=== PATIENT | female | born 1980 | race American Indian/Alaskan Native ===

== ENCOUNTER 2017-11-17 05:19 | Inpatient (IN) | payer BC, OTHER ==
[2017-11-17] MEDS ORDERED: Sodium Chloride 0.9% 2.5 ML Syringe FLUSH PRN (05:29)
[2017-11-17] MEDS ORDERED: Sodium Chloride 0.9% 10 ML Syringe FLUSH PRN (05:29)
[2017-11-17] MEDS ORDERED: Oxytocin/0.9 % Sodium Chloride 30 UNIT/500 ML BAG IV SCH (05:30)
[2017-11-17] MEDS ORDERED: Citric Acid/Sodium Citrate Solution 30 ML Cup PO SCH (05:30)
[2017-11-17] MEDS: Lactated Ringers 1,000 ML IV SCH ×4 (06:05→18:46)
[2017-11-17] MEDS ORDERED: ceFAZolin 2 GM in Premix Bag 1 BAG IV ONE (07:00)
[2017-11-17] MEDS ORDERED: Oxytocin 10 Units/1 ML SDV ONE (07:01)
[2017-11-17] MEDS ORDERED: Ondansetron 4 MG/2 ML SDV ONE (07:01)
[2017-11-17] MEDS ORDERED: ceFAZolin 1 GM Vial ONE (07:01)
[2017-11-17] MEDS ORDERED: Morphine PF 1 MG/ML Amp ONE (07:02)
[2017-11-17] MEDS ORDERED: Sodium Chloride 0.9% 20 ML ONE (07:05)
--- NOTE | 2017-11-17 07:41 | PCM.PREANE ---
Preanesthetic Assessment - Anesthesia/Transfusion/Family Hx Anesthesia History: Prior Anesthesia Without Reaction Family History of Anesthesia Reaction: No Transfusion History: No Prior Transfusion(s) - Review of Systems General: No Symptoms Pulmonary: No Symptoms Cardiovascular: No Symptoms Gastrointestinal: No Symptoms Neurological: No Symptoms Other: Reports: None - Physical Assessment NPO Status Date: 11/16/17 Height: 1.6 m Weight: 95.708 kg ASA Class: 2 Mental Status: Alert & Oriented x3 Airway Class: Mallampati = 2 Dentition: Reports: Normal Dentition ROM/Head Extension: Full Lungs: Clear to Auscultation, Normal Respiratory Effort Cardiovascular: Regular Rate, Regular Rhythm - Lab Values: Laboratory Last Values WBC 11.25 K/uL (4.0-11.0) H 11/16/17 13:09 RBC 4.30 M/uL (4.30-5.90) 11/16/17 13:09 Hgb 12.4 g/dL (12.0-16.0) 11/16/17 13:09 Hct 37.7 % (36.0-46.0) 11/16/17 13:09 MCV 87.7 fL (80.0-98.0) 11/16/17 13:09 MCH 28.8 pg (27.0-32.0) 11/16/17 13:09 MCHC 32.9 g/dL (31.0-37.0) 11/16/17 13:09 RDW Std Deviation 46.6 fl (28.0-62.0) 11/16/17 13:09 RDW Coeff of Alejandra 15 % (11.0-15.0) 11/16/17 13:09 Plt Count 179 K/uL (150-400) 11/16/17 13:09 MPV 10.30 fL (7.40-12.00) 11/16/17 13:09 Nucleated RBC % 0.0 /100WBC 11/16/17 13:09 Nucleated RBCs # 0 K/uL 11/16/17 13:09 Blood Type O POSITIVE 11/16/17 13:09 Antibody Screen NEGATIVE 11/16/17 13:09 - Allergies Allergies/Adverse Reactions: Allergies Allergy/AdvReac Type Severity Reaction Status Date / Time No Known Allergies Allergy Verified 11/17/17 05:34 - Blood Blood Available: Yes - Anesthesia Plan Pre-Op Medication Ordered: Antacids - Acknowledgements Anesthesia Type Planned: General Anesthesia Pt an Appropriate Candidate for the Planned Anesthesia: Yes Alternatives and Risks of Anesthesia Discussed w Pt/Guardian: Yes Pt/Guardian Understands and Agrees with Anesthesia Plan: Yes PreAnesthesia Questionnaire Gastrointestinal History: Reports: Other (See Below) Other Gastrointestinal History: heartburn during Genitourinary History: Reports: None MUCKER COFFERDAM History: Reports: Psychiatric History: Reports: Anxiety Endocrine/Metabolic History: Reports: Obesity/BMI 30+ - Past Surgical History Head Surgeries/Procedures: Reports: None Female Surgical History: Reports: Section Endocrine Surgical History: Reports: Other (See Below) Other Endocrine Surgeries/Procedures: 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 Musculoskeletal Surgical History: Reports: Arthroscopic Knee Other Musculoskeletal Surgeries/Procedures:: ACL repair left knee - SUBSTANCE USE Smoking Status *Q: Never Smoker Second Hand Smoke Exposure: No Recreational Drug Use History: No - HOME MEDS Home Medications: Home Meds Doxylamine/Pyridoxine HCl [Diclegis Dr 10-10 mg Tablet] 2 tab PO BEDTIME [History] Iron 65 mg PO DAILY 11/12/17 [History] Magnesium Oxide [Magnesium] 400 mg PO DAILY 11/12/17 [History] PNV95/Ferrous Fumarate/FA [ Vitamin Tablet] 1 tab PO DAILY 11/12/17 [ History] - CURRENT (IN HOUSE) MEDS Current Meds: Current Medications Citric Acid/Sodium Citrate (Bicitra Solution) 30 ml PO .ONCE KRISTEL Lactated Ringer's (Ringers, Lactated) 1,000 mls @ 500 mls/hr IV .BOLUS KRISTEL Last Admin: 11/17/17 07:08 Dose: 500 mls/hr Oxytocin/Sodium Chloride (Oxytocin 30 Unit/500 Ml-Ns) 30 unit in 500 mls @ 250 mls/hr IV TITRATE KRISTEL Sodium Chloride (Saline Flush) 10 ml FLUSH ASDIRECTED PRN PRN Reason: Keep Vein Open Sodium Chloride (Saline Flush) 2.5 ml FLUSH ASDIRECTED PRN PRN Reason: Keep Vein Open Discontinued Medications Cefazolin Sodium (Ancef) Confirm Administered Dose 2 gm .ROUTE .STK-MED ONE Stop: 11/17/17 07:02 Cefazolin Sodium/Dextrose 2 gm (/ Premix) 50 mls @ 100 mls/hr IV ONETIME ONE Stop: 11/17/17 07:29 Sodium Chloride (Normal Saline) Confirm Administered Dose 20 mls @ as directed .ROUTE .STK-MED ONE Stop: 11/17/17 07:06 Morphine Sulfate (Duramorph Pf) Confirm Administered Dose 1 mg .ROUTE .STK-MED ONE Stop: 11/17/17 07:03 Ondansetron HCl (Zofran) Confirm Administered Dose 4 mg .ROUTE .STK-MED ONE Stop: 11/17/17 07:02 Oxytocin (Pitocin) Confirm Administered Dose 20 unit .ROUTE .STK-MED ONE Stop: 11/17/17 07:02
[2017-11-17] MEDS ORDERED: Ketorolac 30 MG/ML SDV ONE (08:27)
[2017-11-17] MEDS ORDERED: Nalbuphine 10 MG/1 ML Vial IVPUSH PRN (08:29)
[2017-11-17] MEDS ORDERED: Acetaminophen/oxyCODONE 325-5 MG Tab PO PRN (08:29)
[2017-11-17] MEDS ORDERED: fentaNYL 100 MCG/2 ML SDV IVPUSH PRN (08:29)
[2017-11-17] MEDS ORDERED: Octyl 2-Cyanoacrylate 1 Tube ONE (08:43)
[2017-11-17] MEDS ORDERED: diphenhydrAMINE 50 MG/ML SDV IVPUSH PRN (08:59)
[2017-11-17] MEDS ORDERED: Methylergonovine 0.2 MG/1 ML Amp IM PRN (08:59)
[2017-11-17] MEDS ORDERED: Ondansetron 4 MG/2 ML SDV IV PRN (08:59)
[2017-11-17] MEDS ORDERED: Lanolin 100% Cream 7 GM Tube TOP PRN (08:59)
[2017-11-17] MEDS ORDERED: Bisacodyl 10 MG Supp RECTAL PRN (08:59)
--- NOTE | 2017-11-17 09:06 | PCM.OPNOTE ---
- General Post-Op/Procedure Note Date of Surgery/Procedure: 11/17/17 Operative Procedure(s): Repeat Findings: viable female, apgars 9 & 9, weight: 3380, normal placenta 3V cord, normal pelvis, normal ovaries, 2 cm posterior subserosal fibroid on uterus. Pre Op Diagnosis: Repeat Post-Op Diagnosis: same Anesthesia Technique: Spinal Primary Surgeon: Anne-Marie Herzog Translator: Keyanna Paulson Fluid Replacement, Intraop: 2,500 Output, Urine Amount: 200 EBL in mLs: 600 Complications: None Known Condition: Stable
--- NOTE | 2017-11-17 09:48 | PCM.POSTAN ---
POST ANESTHESIA ASSESSMENT - MENTAL STATUS Mental Status: Alert, Oriented - RESPIRATORY Respiratory Status: Respiratory Rate WNL, Airway Patent, O2 Saturation Stable - CARDIOVASCULAR CV Status: Pulse Rate WNL, Blood Pressure Stable - GASTROINTESTINAL GI Status: No Symptoms - POST OP HYDRATION Hydration Status: Adequate & Stable
--- NOTE | 2017-11-17 11:24 | OR ---
SURGEON: Anne-Marie Herzog M.D. DATE OF PROCEDURE: 11/17/2017 PREOPERATIVE DIAGNOSES: 1. 39-week intrauterine . 2. Prior delivery x2. 3. Declines vaginal after section. POSTOPERATIVE DIAGNOSES: 1. 39-week intrauterine . 2. Prior delivery x2. 3. Declines vaginal after section. PROCEDURE: Repeat low-transverse section. HUMAN RESOURCES HR GENERALIST: RUTHIE Lopez ANESTHESIA: Spinal. ESTIMATED BLOOD LOSS: 600 mL. FLUIDS: 2500 mL of crystalloid. URINE OUTPUT: 200 mL. FINDINGS: Live born female, scores 9 and 9 weighing 3380 g. Normal-appearing uterus, tubes, and ovaries except for a 2.5 cm posterior subserosal fibroid. COMPLICATIONS: None known. DISPOSITION: Stable to recovery. BRIEF HISTORY: This is a 37-year-old female. She is G3, P2. She presents at 39 weeks' gestation for repeat delivery with risks discussed including bleeding, infection, injury to bowel, bladder, blood vessels, ureters or other organs, risk of thromboembolic event, and risk of anesthesia. She has also declined a vaginal trial of labor for which she would not be a candidate at our facility due to 2 prior deliveries. Understanding all these risks, she does desire to proceed. DESCRIPTION OF PROCEDURE: With the patient in left tilt position, under adequate spinal analgesia, the abdomen was prepped with chlorhexidine and draped in usual fashion for abdominal surgery. SCDs were in place. Driscoll catheter in place and an appropriate time- out was held. After documentation of adequate analgesia, the prior cicatrix was incised of the transverse curvilinear incision and the incision was carried through the subcutaneous tissue to the fascia, which was scored transversely in the midline. Fascial incision was extended laterally using curved Hartman scissors. The fascia was elevated from the underlying rectus muscle using sharp and blunt dissection. Any areas of bleeding that were noted were cauterized. The rectus muscles were bluntly in the midline. A finger was placed into the peritoneal cavity and there were no adhesions anteriorly. Therefore, the rectus muscles were using Hartman scissors and the incision was extended using blunt dissection. The Bimal O retractor was placed. The visceroperitoneum over the lower uterine segment was incised and a transverse curvilinear incision was made over the lower uterine segment using a scalpel. Finger was used to enter the amniotic cavity, clear fluid was noted. The incision was extended using blunt dissection. With fundal pressure, the head was delivered via the uterine incision. The was bulb suctioned by nose and mouth. The remainder of the infant's body was delivered. The cord was clamped x2 and cut and the infant was handed to the nurse in attendance at delivery. The is a liveborn female, scores 9 and 9, weighing 3380 g. Cord blood was collected for cord ABGs as well as routine cord blood sampling. The placenta was removed by manual extraction. The uterus was cleaned with a dry laparotomy tape. The cervix was opened with a ring forceps. The uterine incision was closed with a running lock suture of 0 Polysorb followed by an imbricating layer of 0 Polysorb. Two additional [id number] sutures were placed in the midline for hemostasis. Once the hemostasis had been established, the tubes and ovaries were inspected. The posterior fibroid was noted. The paracolic gutters and posterior cul-de-sac were cleaned with wet laparotomy tape. The uterine incision was again inspected, it remained completely hemostatic. Therefore, the Bimal O retractor was removed. The rectus muscle and peritoneum were loosely approximated in the midline using a running mattress suture of 0 Polysorb. The posterior aspect of the fascia was inspected and any areas of bleeding that were noted were cauterized. The fascial incision was closed with a running suture of 0 Polysorb. Subcutaneous tissue was irrigated. Any areas of bleeding that were noted were cauterized. The skin was closed with a running subcuticular suture of 3-0 Monocryl followed by Dermabond. Final sponge, needle, and instrument counts were reported as correct. There were no known complications. went to nursery in good condition. Mother remains in recovery in good condition. MOUNA / DENNIS /[id number]
[2017-11-17] MEDS: Ketorolac 30 MG/ML SDV IVPUSH SCH ×3 (13:56→22:22)
[2017-11-17] MEDS: Docusate Sodium 100 MG Cap PO SCH (20:50)
[2017-11-18] MEDS: Ketorolac 30 MG/ML SDV IVPUSH SCH ×2 (03:26→09:00)
--- NOTE | 2017-11-18 07:27 | PCM48HPAN ---
Post Anesthesia Note - EVALUATION WITHIN 48HRS OF ANESTHETIC Vital Signs in Normal Range: Yes Patient Participated in Evaluation: Yes Respiratory Function Stable: Yes Airway Patent: Yes Cardiovascular Function Stable: Yes Hydration Status Stable: Yes Pain Control Satisfactory: Yes Nausea and Vomiting Control Satisfactory: Yes Mental Status Recovered: Yes Resp Rate: 16 Blood Pressure: 118/74 - COMMENTS/OBSERVATIONS Free Text/Narrative:: Pt states good pain control and no nausea. Slight pruritis overnight, but doing better this morning.
--- NOTE | 2017-11-18 07:37 | PCM.PNPP ---
<Keyanna Paulson - Last Filed: 11/18/17 07:32> - General Info Date of Service: 11/18/17 Admission Dx/Problem (Free Text): 39 wk IUP, RLTC, prior x2, declined . Subjective Update: Patient is doing well. Pain is tolerable with medications. Bottle feeding. Driscoll has been removed. Has not urinated or stooled. No Flatus. Ambulating. Using SCDs. Lochia WNL. Has not had food yet. Anticipate discharge tomorrow. Functional Status: Reports: Pain Controlled, Ambulating. Denies: Urinating, Incentive Spirometry - Review of Systems General: Denies: Fever, Chills HEENT: Denies: Headaches Pulmonary: Denies: Shortness of Breath, Pleuritic Chest Pain Cardiovascular: Denies: Chest Pain, Palpitations, Lightheadedness Gastrointestinal: Denies: Flatus - General Info Date of Service: 11/18/17 - Patient Data Vital Signs - Most Recent: Last Vital Signs Temp 36.9 C 11/18/17 07:26 Pulse 74 11/18/17 07:26 Resp 16 11/18/17 07:26 BP 118/74 11/18/17 07:26 Pulse Ox 95 11/18/17 07:26 Weight - Most Recent: 95.708 kg I&O - Last 24 Hours: Intake & Output 11/17/17 11/18/17 11/18/17 22:59 06:59 14:59 Intake Total 1000 Output Total 250 1100 Balance 750 -1100 Lab Results - Last 24 Hours: Laboratory Results - last 24 hr 11/18/17 Range/Units 05:33 Hgb 10.7 L (12.0-16.0) g/dL Hct 32.4 L (36.0-46.0) % Med Orders - Current: Current Medications Bisacodyl (Dulcolax) 10 mg RECTAL .ONCE PRN PRN Reason: Constipation Diphenhydramine HCl (Benadryl) 25 mg IVPUSH Q6H PRN PRN Reason: Itching or Nausea Last Admin: 11/17/17 12:55 Dose: 25 mg Docusate Sodium (Colace) 100 mg PO BID KRISTEL Last Admin: 11/17/17 20:50 Dose: 100 mg Emollient Ointment (Lansinoh Hpa) 0 gm TOP ASDIRECTED PRN PRN Reason: Sore Nipples Fentanyl (Sublimaze) 50 mcg IVPUSH Q5M PRN PRN Reason: Pain (severe 7-10) Stop: 11/18/17 08:30 Lactated Ringer's (Ringers, Lactated) 1,000 mls @ 125 mls/hr IV ASDIRECTED KRISTEL Last Admin: 11/17/17 18:46 Dose: 125 mls/hr Ibuprofen (Motrin) 800 mg PO Q8H PRN PRN Reason: mild pain or fever Ketorolac Tromethamine (Toradol) 30 mg IVPUSH Q6H KRISTEL Stop: 11/18/17 09:01 Last Admin: 11/18/17 03:26 Dose: 30 mg Methylergonovine Maleate (Methergine) 0.2 mg IM .ONCE PRN PRN Reason: Excessive Vaginal Bleeding Nalbuphine HCl (Nubain) 2.5 mg IVPUSH Q3H PRN PRN Reason: Pruritis Stop: 11/18/17 08:30 Last Admin: 11/17/17 10:19 Dose: 2.5 mg Ondansetron HCl (Zofran) 4 mg IV Q4H PRN PRN Reason: Nausea/Vomiting Last Admin: 11/17/17 11:06 Dose: 4 mg Oxycodone/Acetaminophen (Percocet 325-5 Mg) 1 tab PO ONETIME PRN PRN Reason: Pain (moderate 4-6) Oxycodone/Acetaminophen (Percocet 325-5 Mg) 1 tab PO Q4H PRN PRN Reason: Pain (moderate 4-6) Oxycodone/Acetaminophen (Percocet 325-5 Mg) 2 tab PO Q4H PRN PRN Reason: Pain (moderate 4-6) Discontinued Medications Cefazolin Sodium (Ancef) Confirm Administered Dose 2 gm .ROUTE .STK-MED ONE Stop: 11/17/17 07:02 Citric Acid/Sodium Citrate (Bicitra Solution) 30 ml PO .ONCE KRISTEL Last Admin: 11/17/17 07:48 Dose: 30 ml Cefazolin Sodium/Dextrose 2 gm (/ Premix) 50 mls @ 100 mls/hr IV ONETIME ONE Stop: 11/17/17 07:29 Last Admin: 04/16/18 22:21 Dose: Not Given Lactated Ringer's (Ringers, Lactated) 1,000 mls @ 500 mls/hr IV .BOLUS KRISTEL Last Admin: 11/17/17 07:08 Dose: 500 mls/hr Oxytocin/Sodium Chloride (Oxytocin 30 Unit/500 Ml-Ns) 30 unit in 500 mls @ 250 mls/hr IV TITRATE KRISTEL Sodium Chloride (Normal Saline) Confirm Administered Dose 20 mls @ as directed .ROUTE .STK-MED ONE Stop: 11/17/17 07:06 Ketorolac Tromethamine (Toradol) Confirm Administered Dose 30 mg .ROUTE .STK- MED ONE Stop: 11/17/17 08:28 Lidocaine HCl (Xylocaine-Mpf 1%) Confirm Administered Dose 5 ml .ROUTE .STK-MED ONE Stop: 11/17/17 07:55 Morphine Sulfate (Duramorph Pf) Confirm Administered Dose 1 mg .ROUTE .STK-MED ONE Stop: 11/17/17 07:03 Octyl Cyanoacrylate (Dermabond Advance) Confirm Administered Dose 1 applic .ROUTE .STK-MED ONE Stop: 11/17/17 08:44 Ondansetron HCl (Zofran) Confirm Administered Dose 4 mg .ROUTE .STK-MED ONE Stop: 11/17/17 07:02 Oxytocin (Pitocin) Confirm Administered Dose 20 unit .ROUTE .STK-MED ONE Stop: 11/17/17 07:02 Sodium Chloride (Saline Flush) 10 ml FLUSH ASDIRECTED PRN PRN Reason: Keep Vein Open Sodium Chloride (Saline Flush) 2.5 ml FLUSH ASDIRECTED PRN PRN Reason: Keep Vein Open - Interaction Disposition, : Fulda in Room with Family Infant Interaction: Holding Infant Feeding: Bottle Fed Infant Support Person: - Recovery Exam Lochia Amount: Scant Lochia Color: Rubra/Red - Exam General: Alert, Oriented, No Acute Distress Lungs: Clear to Auscultation, Normal Respiratory Effort Cardiovascular: Regular Rate, Regular Rhythm GI/Abdominal Exam: Soft, Non-Tender Extremities: Pedal Edema Skin: Warm, Dry, Intact Wound/Incisions: Healing Well, Dressing Dry and Intact Psy/Mental Status: Alert - Assessment Assessment:: Status post-op day #1 for RLTC. Stable. - Plan Plan:: Routine post-op & post- cares. Anticipate discharge tomorrow. <Anne-Marie Herzog - Last Filed: 11/18/17 08:50> - Patient Data Vital Signs - Most Recent: Last Vital Signs Temp 36.9 C 11/18/17 07:26 Pulse 74 11/18/17 07:26 Resp 16 11/18/17 08:24 BP 118/74 11/18/17 07:26 Pulse Ox 95 11/18/17 08:24 I&O - Last 24 Hours: Intake & Output 11/17/17 11/18/17 11/18/17 22:59 06:59 14:59 Intake Total 1000 Output Total 250 1100 Balance 750 -1100 Lab Results - Last 24 Hours: Laboratory Results - last 24 hr 11/18/17 Range/Units 05:33 Hgb 10.7 L (12.0-16.0) g/dL Hct 32.4 L (36.0-46.0) % Med Orders - Current: Current Medications Bisacodyl (Dulcolax) 10 mg RECTAL .ONCE PRN PRN Reason: Constipation Diphenhydramine HCl (Benadryl) 25 mg IVPUSH Q6H PRN PRN Reason: Itching or Nausea Last Admin: 11/17/17 12:55 Dose: 25 mg Docusate Sodium (Colace) 100 mg PO BID [facility] Last Admin: 11/17/17 20:50 Dose: 100 mg Emollient Ointment (Lansinoh Hpa) 0 gm TOP ASDIRECTED PRN PRN Reason: Sore Nipples Lactated Ringer's (Ringers, Lactated) 1,000 mls @ 125 mls/hr IV ASDIRECTED [facility] Last Admin: 11/17/17 18:46 Dose: 125 mls/hr Ibuprofen (Motrin) 800 mg PO Q8H PRN PRN Reason: mild pain or fever Ketorolac Tromethamine (Toradol) 30 mg IVPUSH Q6H [facility] Stop: 11/18/17 09:01 Last Admin: 11/18/17 03:26 Dose: 30 mg Methylergonovine Maleate (Methergine) 0.2 mg IM .ONCE PRN PRN Reason: Excessive Vaginal Bleeding Ondansetron HCl (Zofran) 4 mg IV Q4H PRN PRN Reason: Nausea/Vomiting Last Admin: 11/17/17 11:06 Dose: 4 mg Oxycodone/Acetaminophen (Percocet 325-5 Mg) 1 tab PO ONETIME PRN PRN Reason: Pain (moderate 4-6) Oxycodone/Acetaminophen (Percocet 325-5 Mg) 1 tab PO Q4H PRN PRN Reason: Pain (moderate 4-6) Oxycodone/Acetaminophen (Percocet 325-5 Mg) 2 tab PO Q4H PRN PRN Reason: Pain (moderate 4-6) Discontinued Medications Cefazolin Sodium (Ancef) Confirm Administered Dose 2 gm .ROUTE .STK-MED ONE Stop: 11/17/17 07:02 Citric Acid/Sodium Citrate (Bicitra Solution) 30 ml PO .ONCE KRISTEL Last Admin: 11/17/17 07:48 Dose: 30 ml Fentanyl (Sublimaze) 50 mcg IVPUSH Q5M PRN PRN Reason: Pain (severe 7-10) Stop: 11/18/17 08:30 Cefazolin Sodium/Dextrose 2 gm (/ Premix) 50 mls @ 100 mls/hr IV ONETIME ONE Stop: 11/17/17 07:29 Last Admin: 11/17/17 22:21 Dose: Not Given Lactated Ringer's (Ringers, Lactated) 1,000 mls @ 500 mls/hr IV .BOLUS KRISTEL Last Admin: 11/17/17 07:08 Dose: 500 mls/hr Oxytocin/Sodium Chloride (Oxytocin 30 Unit/500 Ml-Ns) 30 unit in 500 mls @ 250 mls/hr IV TITRATE KRISTEL Sodium Chloride (Normal Saline) Confirm Administered Dose 20 mls @ as directed .ROUTE .STK-MED ONE Stop: 11/17/17 07:06 Ketorolac Tromethamine (Toradol) Confirm Administered Dose 30 mg .ROUTE .STK- MED ONE Stop: 11/17/17 08:28 Lidocaine HCl (Xylocaine-Mpf 1%) Confirm Administered Dose 5 ml .ROUTE .STK-MED ONE Stop: 11/17/17 07:55 Morphine Sulfate (Duramorph Pf) Confirm Administered Dose 1 mg .ROUTE .STK-MED ONE Stop: 11/17/17 07:03 Nalbuphine HCl (Nubain) 2.5 mg IVPUSH Q3H PRN PRN Reason: Pruritis Stop: 11/18/17 08:30 Last Admin: 11/17/17 10:19 Dose: 2.5 mg Octyl Cyanoacrylate (Dermabond Advance) Confirm Administered Dose 1 applic .ROUTE .STK-MED ONE Stop: 11/17/17 08:44 Ondansetron HCl (Zofran) Confirm Administered Dose 4 mg .ROUTE .STK-MED ONE Stop: 11/17/17 07:02 Oxytocin (Pitocin) Confirm Administered Dose 20 unit .ROUTE .STK-MED ONE Stop: 11/17/17 07:02 Sodium Chloride (Saline Flush) 10 ml FLUSH ASDIRECTED PRN PRN Reason: Keep Vein Open Sodium Chloride (Saline Flush) 2.5 ml FLUSH ASDIRECTED PRN PRN Reason: Keep Vein Open - Problem List & Annotations (1) delivery delivered SNOMED Code(s): 946255401 Code(s): O82 - ENCOUNTER FOR DELIVERY WITHOUT INDICATION Status: Acute Current Visit: Yes - Problem List Review Problem List Initiated/Reviewed/Updated: Yes - My Orders Last 24 Hours: My Active Orders 11/17/17 08:59 Patient Status [ADT] Routine Ambulate [RC] PER UNIT ROUTINE Communication Order [RC] PER UNIT ROUTINE Communication Order [RC] PER UNIT ROUTINE Communication Order [RC] Per Unit Routine Intake and Output [RC] Q12H May Shower [RC] ASDIRECTED Notify Provider Intake and Out [RC] ASDIRECTED Notify Provider Vital Signs [RC] ASDIRECTED RT Incentive Spirometry [RC] Q2HWA Acetaminophen/oxyCODONE [Percocet 325-5 MG] 1 tab PO Q4H PRN Acetaminophen/oxyCODONE [Percocet 325-5 MG] 2 tab PO Q4H PRN Bisacodyl [Dulcolax] 10 mg RECTAL .ONCE PRN Ibuprofen [Motrin] 800 mg PO Q8H PRN Lanolin [Lansinoh HPA] See Dose Instructions TOP ASDIRECTED PRN Methylergonovine [Methergine] 0.2 mg IM .ONCE PRN Ondansetron [Zofran] 4 mg IV Q4H PRN diphenhydrAMINE [Benadryl] 25 mg IVPUSH Q6H PRN Abdominal Binder [OM.PC] Routine Assess Lochia [WOMSER] Per Unit Routine Assess Uterine Involution [WOMSER] Per Unit Routine Breast Pump [WOMSER] Per Unit Routine Peripheral IV Discontinue [OM.PC] Routine Sequential Compression Device [OM.PC] Per Unit Routine Resuscitation Status Routine 11/17/17 09:00 Docusate Sodium [Colace] 100 mg PO BID Ketorolac [Toradol] 30 mg IVPUSH Q6H Lactated Ringers [Ringers, Lactated] 1,000 ml IV ASDIRECTED 11/17/17 Dinner Regular Diet [DIET] - Plan Plan:: Patient was examined and I agree with above. She will need to start on oral pain medications today, continue postop care, ambulate, home in am if stable.
[2017-11-18] MEDS: Docusate Sodium 100 MG Cap PO SCH ×3 (08:56→21:00)
[2017-11-18] MEDS: Acetaminophen/oxyCODONE 325-5 MG Tab PO PRN ×4 (12:20→22:16)
[2017-11-18] MEDS: Ibuprofen 800 MG Tab PO PRN ×2 (15:19→23:53)
[2017-11-19] MEDS: Acetaminophen/oxyCODONE 325-5 MG Tab PO PRN ×2 (03:19→11:51)
--- NOTE | 2017-11-19 08:28 | PCM.PNPP ---
- General Info Date of Service: 11/19/17 Functional Status: Reports: Pain Controlled, Tolerating Diet, Ambulating, Urinating - Review of Systems General: Reports: No Symptoms HEENT: Reports: No Symptoms Pulmonary: Reports: No Symptoms Cardiovascular: Reports: No Symptoms Gastrointestinal: Reports: No Symptoms Genitourinary: Reports: No Symptoms Musculoskeletal: Reports: No Symptoms Skin: Reports: No Symptoms Neurological: Reports: No Symptoms Psychiatric: Reports: No Symptoms - Patient Data Vital Signs - Most Recent: Last Vital Signs Temp 36.1 C 11/18/17 23:53 Pulse 75 11/18/17 23:53 Resp 18 11/18/17 23:53 BP 112/66 11/18/17 23:53 Pulse Ox 98 11/18/17 23:53 Weight - Most Recent: 95.708 kg I&O - Last 24 Hours: Intake & Output 11/18/17 11/19/17 11/19/17 22:59 06:59 14:59 Output Total 900 Balance -900 Med Orders - Current: Current Medications Bisacodyl (Dulcolax) 10 mg RECTAL .ONCE PRN PRN Reason: Constipation Diphenhydramine HCl (Benadryl) 25 mg IVPUSH Q6H PRN PRN Reason: Itching or Nausea Last Admin: 11/17/17 12:55 Dose: 25 mg Docusate Sodium (Colace) 100 mg PO BID [facility] Last Admin: 11/18/17 21:00 Dose: 100 mg Emollient Ointment (Lansinoh Hpa) 0 gm TOP ASDIRECTED PRN PRN Reason: Sore Nipples Lactated Ringer's (Ringers, Lactated) 1,000 mls @ 125 mls/hr IV ASDIRECTED [facility] Last Admin: 11/17/17 18:46 Dose: 125 mls/hr Ibuprofen (Motrin) 800 mg PO Q8H PRN PRN Reason: mild pain or fever Last Admin: 11/18/17 23:53 Dose: 800 mg Methylergonovine Maleate (Methergine) 0.2 mg IM .ONCE PRN PRN Reason: Excessive Vaginal Bleeding Ondansetron HCl (Zofran) 4 mg IV Q4H PRN PRN Reason: Nausea/Vomiting Last Admin: 11/17/17 11:06 Dose: 4 mg Oxycodone/Acetaminophen (Percocet 325-5 Mg) 1 tab PO ONETIME PRN PRN Reason: Pain (moderate 4-6) Oxycodone/Acetaminophen (Percocet 325-5 Mg) 1 tab PO Q4H PRN PRN Reason: Pain (moderate 4-6) Last Admin: 11/18/17 15:19 Dose: 1 tab Oxycodone/Acetaminophen (Percocet 325-5 Mg) 2 tab PO Q4H PRN PRN Reason: Pain (moderate 4-6) Last Admin: 11/19/17 03:19 Dose: 2 tab Discontinued Medications Cefazolin Sodium (Ancef) Confirm Administered Dose 2 gm .ROUTE .STK-MED ONE Stop: 11/17/17 07:02 Citric Acid/Sodium Citrate (Bicitra Solution) 30 ml PO .ONCE [facility] Last Admin: 11/17/17 07:48 Dose: 30 ml Fentanyl (Sublimaze) 50 mcg IVPUSH Q5M PRN PRN Reason: Pain (severe 7-10) Stop: 11/18/17 08:30 Cefazolin Sodium/Dextrose 2 gm (/ Premix) 50 mls @ 100 mls/hr IV ONETIME ONE Stop: 11/17/17 07:29 Last Admin: 11/17/17 22:21 Dose: Not Given Lactated Ringer's (Ringers, Lactated) 1,000 mls @ 500 mls/hr IV .BOLUS KRISTEL Last Admin: 11/17/17 07:08 Dose: 500 mls/hr Oxytocin/Sodium Chloride (Oxytocin 30 Unit/500 Ml-Ns) 30 unit in 500 mls @ 250 mls/hr IV TITRATE [facility]ST[facility] Sodium Chloride (Normal Saline) Confirm Administered Dose 20 mls @ as directed .ROUTE .STK-MED ONE Stop: 11/17/17 07:06 Ketorolac Tromethamine (Toradol) Confirm Administered Dose 30 mg .ROUTE .STK- MED ONE Stop: 11/17/17 08:28 Ketorolac Tromethamine (Toradol) 30 mg IVPUSH Q6H [facility] Stop: 11/18/17 09:01 Last Admin: 11/18/17 09:00 Dose: 30 mg Lidocaine HCl (Xylocaine-Mpf 1%) Confirm Administered Dose 5 ml .ROUTE .STK-MED ONE Stop: 11/17/17 07:55 Morphine Sulfate (Duramorph Pf) Confirm Administered Dose 1 mg .ROUTE .STK-MED ONE Stop: 11/17/17 07:03 Nalbuphine HCl (Nubain) 2.5 mg IVPUSH Q3H PRN PRN Reason: Pruritis Stop: 11/18/17 08:30 Last Admin: 11/17/17 10:19 Dose: 2.5 mg Octyl Cyanoacrylate (Dermabond Advance) Confirm Administered Dose 1 applic .ROUTE .STK-MED ONE Stop: 11/17/17 08:44 Ondansetron HCl (Zofran) Confirm Administered Dose 4 mg .ROUTE .STK-MED ONE Stop: 11/17/17 07:02 Oxytocin (Pitocin) Confirm Administered Dose 20 unit .ROUTE .STK-MED ONE Stop: 11/17/17 07:02 Sodium Chloride (Saline Flush) 10 ml FLUSH ASDIRECTED PRN PRN Reason: Keep Vein Open Sodium Chloride (Saline Flush) 2.5 ml FLUSH ASDIRECTED PRN PRN Reason: Keep Vein Open - Interaction Infant Disposition, : [place] in Room with Family Interaction: Holding Infant Feeding: Bottle Fed Infant Support Person: - Recovery Exam Fundal Tone: Firm Fundal Level: 1 Fingerbreadths Below Umbilicus Fundal Placement: Midline Lochia Amount: Scant Lochia Color: Rubra/Red Perineum Description: Intact, Minimal Bruising/Swelling Bladder Status: Voiding Urinary Elimination: Indwelling Catheter - Exam General: Alert, Oriented Lungs: Clear to Auscultation, Normal Respiratory Effort Cardiovascular: Regular Rate, Regular Rhythm GI/Abdominal Exam: Normal Bowel Sounds, Soft, Non-Tender, No Organomegaly, No Distention Extremities: Normal Inspection, Non-Tender, No Pedal Edema, Normal Capillary Refill Skin: Warm, Dry, Intact Wound/Incisions: Healing Well Neurological: No New Focal Deficit - Problem List & Annotations (1) delivery delivered SNOMED Code(s): 915157011 Code(s): O82 - ENCOUNTER FOR DELIVERY WITHOUT INDICATION Status: Acute Current Visit: Yes - Problem List Review Problem List Initiated/Reviewed/Updated: Yes - My Orders Last 24 Hours: My Active Orders 11/19/17 08:18 Ready for Discharge [RC] PER UNIT ROUTINE - Assessment Assessment:: POD#2 after repeat low transverse , stable, minimal lochia, tolerating diet, would like to go home. - Plan Plan:: Discharge instructions reviewed. Call if temp over 101, uncontrolled pain or bleeding more than a pad per hour for 2 hours. She will complete 1 month of vitamins.
[2017-11-19] MEDS: Docusate Sodium 100 MG Cap PO SCH (08:39)
[2017-11-19] MEDS: Ibuprofen 800 MG Tab PO PRN (08:40)
[2017-11-19 09:41] VITALS: BP 113/76
== END 2017-11-19 13:15 | disposition home or self-care (01) | DRG 540 ==
LOC: MW.OB 05:19
PROVIDERS: ADMIT Obstetrics & Gynecology; ATTEND Obstetrics & Gynecology
PROC: 10D00Z1 Extraction of Products of Conception, Low, Open Approach (ICD-10-PCS; principal; 2017-11-17)
DX: O34.211 Maternal care for low transverse scar from previous cesarean delivery (principal); Z3A.39 39 weeks gestation of pregnancy; Z37.0 Single live birth
CPT/HCPCS: 36415; 59025; 85014; 85018; 85027; 86850; 86900; 86901; A9270-GY; J0690; J1200; J1885; J2274; J2300; J2405; J2590; J7120

== ENCOUNTER 2018-04-29 07:23 | Day surgery (SDC) | payer BC, OTHER ==
[~2018-04-29 07:23] MED LIST: Dexamethasone 4 MG/ML 5 ML MDV ONE; Lactated Ringers 1,000 ML IV SCH; Midazolam 1 MG/ML 2 ML SDV ONE; Ondansetron 4 MG/2 ML SDV ONE; Propofol 200 MG/20 ML SDV ONE; ceFAZolin/Dextrose,Iso-Osmotic 2 GM/50 ML Duplex Bag IV ONE; fentaNYL 250 MCG/5 ML SDV ONE
[2018-04-29] MEDS ORDERED: Lidocaine 1% 20 ML MDV ONE (07:41)
[2018-04-29] MEDS ORDERED: ceFAZolin 2 GM in Premix Bag 1 BAG IV SCH (08:00)
--- NOTE | 2018-04-29 09:11 | PCM.PREANE ---
Preanesthetic Assessment - Procedure Proposed Procedure: Left knee scope with menisectomy - Anesthesia/Transfusion/Family Hx Anesthesia History: Prior Anesthesia Without Reaction Family History of Anesthesia Reaction: No Transfusion History: No Prior Transfusion(s) - Review of Systems General: No Symptoms Pulmonary: No Symptoms Cardiovascular: No Symptoms Gastrointestinal: No Symptoms Neurological: No Symptoms Other: Reports: Diabetes, Thyroid Problems (incision with parathyroid adenoma excision) - Physical Assessment NPO Status Date: 04/28/18 NPO Status Time: 20:00 O2 Sat by Pulse Oximetry: 95 Respiratory Rate: 16 Vital Signs: Last Vital Signs Temp 97.2 F 04/29/18 07:40 Pulse 64 04/29/18 07:40 Resp 16 04/29/18 07:40 BP 114/71 04/29/18 07:40 Pulse Ox 95 04/29/18 07:40 Height: 5 ft 2 in Weight: 190 lb ASA Class: 2 Mental Status: Alert & Oriented x3 Airway Class: Mallampati = 1 Dentition: Reports: Normal Dentition Thyro-Mental Finger Breadths: 4 Mouth Opening Finger Breadths: 3 ROM/Head Extension: Full Lungs: Clear to Auscultation, Normal Respiratory Effort Cardiovascular: Regular Rate, Regular Rhythm, No Murmurs - Lab Values: Laboratory Last Values Urine HCG, Qual NEGATIVE (NEGATIVE) 04/29/18 07:35 - Allergies Allergies/Adverse Reactions: Allergies Allergy/AdvReac Type Severity Reaction Status Date / Time No Known Allergies Allergy Verified 04/27/18 09:53 - Blood Blood Available: No Product(s) Available: None - Anesthesia Plan Pre-Op Medication Ordered: None - Acknowledgements Anesthesia Type Planned: General Anesthesia (LMA) Pt an Appropriate Candidate for the Planned Anesthesia: Yes Alternatives and Risks of Anesthesia Discussed w Pt/Guardian: Yes Pt/Guardian Understands and Agrees with Anesthesia Plan: Yes PreAnesthesia Questionnaire Gastrointestinal History: Reports: None Genitourinary History: Reports: None FINANCIAL SECRETARY History: Reports: Polycystic Ovaries, Psychiatric History: Reports: Anxiety Endocrine/Metabolic History: Reports: Obesity/BMI 30+ - Past Surgical History Head Surgeries/Procedures: Reports: None Female Surgical History: Reports: Section Endocrine Surgical History: Reports: Thyroidectomy, Other (See Below) Other Endocrine Surgeries/Procedures: partial thyroidectomy Musculoskeletal Surgical History: Reports: Arthroscopic Knee Other Musculoskeletal Surgeries/Procedures:: left knee scope x2 - SUBSTANCE USE Smoking Status *Q: Never Smoker Recreational Drug Use History: No - HOME MEDS Home Medications: Home Meds Biotin 1 tab PO DAILY 04/27/18 [History] Multivitamin [Multivitamins] 1 tab PO DAILY 04/27/18 [History] metFORMIN HCl [Glucophage XR] 750 mg PO DAILY 04/27/18 [History] - CURRENT (IN HOUSE) MEDS Current Meds: Current Medications Hydrocodone Bitart/Acetaminophen ([place] 325-5 Mg) 1 - 2 tab PO Q4H PRN PRN Reason: Pain Fentanyl (Sublimaze) 50 mcg IVPUSH Q5M PRN PRN Reason: Pain (moderate 4-6) Stop: 04/29/18 12:00 Cefazolin Sodium/Dextrose 2 gm (/ Premix) 50 mls @ 100 mls/hr IV ONCALL [facility] Lactated Ringer's (Ringers, Lactated) 1,000 mls @ 100 mls/hr IV ASDIRECTED [facility] Last Admin: 04/29/18 07:40 Dose: 100 mls/hr Discontinued Medications Cefazolin Sodium/Dextrose (Ancef) Confirm Administered Dose 2 gm IV .STK-MED ONE Stop: 04/29/18 07:15 Dexamethasone (Dexamethasone) Confirm Administered Dose 20 mg .ROUTE .STK-MED ONE Stop: 04/29/18 07:14 Fentanyl (Sublimaze) Confirm Administered Dose 250 mcg .ROUTE .STK-MED ONE Stop: 04/29/18 07:13 Lidocaine HCl (Xylocaine-Mpf 1%) Confirm Administered Dose 5 mls @ as directed .ROUTE .STK-MED ONE Stop: 04/29/18 07:14 Lidocaine HCl (Xylocaine 1%) Confirm Administered Dose 20 ml .ROUTE .STK-MED ONE Stop: 04/29/18 07:42 Midazolam HCl (Versed 1 Mg/Ml) Confirm Administered Dose 2 mg .ROUTE .STK-MED ONE Stop: 04/29/18 07:13 Ondansetron HCl (Zofran) Confirm Administered Dose 4 mg .ROUTE .STK-MED ONE Stop: 04/29/18 07:14 Propofol (Diprivan 20 Ml) Confirm Administered Dose 200 mg .ROUTE .STK-MED ONE Stop: 04/29/18 07:12
--- NOTE | 2018-04-29 10:47 | PCM.OPNOTE ---
- General Post-Op/Procedure Note Date of Surgery/Procedure: 04/29/18 Operative Procedure(s): L knee arthroscopy with partial lateral menisectomy and excision of loose body ([id number]) Pre Op Diagnosis: 1. DJD left knee. 2. L knee lateral meniscus tear Post-Op Diagnosis: 1. DJD left knee. 2. L knee lateral meniscus tear. 3. Loose body left knee Anesthesia Technique: General LMA Primary Surgeon: Celina Acosta Assembly Line Worker: Daphne Ruiz in mLs: 5 Condition: Good Free Text/Narrative:: tt=23 min Brief history: Patient is a 37-year-old female who has had complaints of pain. She underwent a left knee ACL reconstruction in 2000. She has done well until recently. She is quite active. She has noticed increased pain in her left knee along with a locking sensation. Due to her lack of response conservative treatment, I did recommend surgical treatment. Risks and goals of procedure were discussed with the patient were documented preoperatively. She agreed to proceed. Description of procedure: Patient was properly identified and brought to the operating room. They were transferred from the OR cart and placed on operating table in supine position. General anesthesia was administered. After adequate anesthesia was obtained, well-padded tourniquet was applied to the lower extremity. The lower extremity was then prepped in standard fashion using ChloraPrep solution. It was then sterilely draped. A timeout was performed to ensure correct site and procedure. Preoperative antibiotics were given. The surgical site had been marked preoperatively. An Esmarch was used to exsanguinate the lower extremity and the tourniquet was inflated to 250 mmHg. A lateral portal arthrotomy was established. Blunt trocar and cannula were introduced into the suprapatellar space. Camera, inflow, and outflow were assembled. A medial portal arthrotomy was established. A blunt probe was inserted. Findings: Supra-patellar pouch: No significant synovitis. Patellofemoral joint: Significant degenerative changes noted along the patellofemoral joint. Both the patella and trochlea showed diffuse grade 3 to grade 4 degenerative findings. A 4.5 mm shaver was used to perform a chondroplasty of both. I was able to remove the loose cartilage fragments. The patella appeared to track centrally. Lateral and medial gutter: A loose body was identified along the medial gutter. A spinal needle was used to transfer the loose body to the suprapatellar pouch. The medial arthrotomy portal was extended to allow for delivery of the loose body. A grasper did grasp the loose body and it was removed easily from the knee joint. This measured approximately 10 mm x 10 mm x 4 mm. Medial compartment: Diffuse grade 2 degenerative changes were noted along the medial tibial plateau as well as the medial femoral condyle. The meniscus was extensively probed. No tearing was noted. Notch: Both the ACL and PCL were visualized and probed. The ACL did show extensive redundancy. The attachment to the lateral femoral condyle appeared intact. Lateral compartment: Extensive degenerative tearing of the lateral meniscus was noted. There was evidence of a prior lateral meniscectomy as very little meniscus remained. Using a combination of biters and shaver, the meniscus was resected. A thin rim of meniscus remained at the completion of the procedure. The joint surfaces showed extensive grade 3 degenerative findings with areas of grade 4 chondromalacia. No loose cartilage pieces were appreciated. Instruments were then removed from the knee. The portal sites were closed with 3 -0 nylon. 1% lidocaine was injected along the portal tracts. Xeroform gauze was placed over the wound and a bulky dressing was applied. Tourniquet was then deflated. Patient was awakened from the anesthetic and transferred back to the operative cart. Patient was brought to recovery room in stable condition. All needle and sponge counts were correct.
[2018-04-29] MEDS: fentaNYL 100 MCG/2 ML SDV IVPUSH PRN ×4 (10:56→11:20)
--- NOTE | 2018-04-29 11:28 | PCM.POSTAN ---
POST ANESTHESIA ASSESSMENT - MENTAL STATUS Mental Status: Alert, Oriented - RESPIRATORY Respiratory Status: Respiratory Rate WNL, Airway Patent, O2 Saturation Stable - CARDIOVASCULAR CV Status: Pulse Rate WNL, Blood Pressure Stable - GASTROINTESTINAL GI Status: No Symptoms - PAIN Pain Score: 4 - POST OP HYDRATION Hydration Status: Adequate & Stable
[2018-04-29] MEDS: Acetaminophen/HYDROcodone 325-5 MG Tab PO PRN ×2 (11:53→12:24)
--- NOTE | 2018-04-29 12:11 | PCM48HPAN ---
Post Anesthesia Note - EVALUATION WITHIN 48HRS OF ANESTHETIC Vital Signs in Normal Range: Yes Patient Participated in Evaluation: Yes Respiratory Function Stable: Yes Airway Patent: Yes Cardiovascular Function Stable: Yes Hydration Status Stable: Yes Pain Control Satisfactory: Yes Nausea and Vomiting Control Satisfactory: Yes Mental Status Recovered: Yes Resp Rate: 98
[2018-04-29 12:51] VITALS: BP 110/71
== END 2018-04-29 13:15 | disposition home or self-care (01) ==
LOC: MW.SDS 07:23
PROVIDERS: ATTEND Orthopaedic Surgery
DX: M23.201 Derangement of unspecified lateral meniscus due to old tear or injury, left knee (principal); M17.12 Unilateral primary osteoarthritis, left knee; M23.42 Loose body in knee, left knee; M94.262 Chondromalacia, left knee; E66.9 Obesity, unspecified; Z68.35 Body mass index [BMI] 35.0-35.9, adult; Z79.84 Long term (current) use of oral hypoglycemic drugs
CPT/HCPCS: 29881; 81025; A9270; J0690; J1100; J2250; J2405; J2704; J3010; J7120

== ENCOUNTER 2023-11-03 10:17 | Emergency (ER) | payer BC ==
[2023-11-03] MEDS: Amoxicillin/Clavulanate K 875-125 MG Tab PO ONE (10:45)
[2023-11-03] MEDS: methylPREDNISolone Sodium Succinate 125 MG/2 ML SDV IM ONE (10:46)
[2023-11-03] MEDS: Lidocaine 2% Viscous Solution 15 ML UD PO ONE (10:46)
[2023-11-03] MEDS: diphenhydrAMINE 12.5 MG/5 ML Liquid 5 ML UD Cup PO STA (10:46)
[2023-11-03] MEDS: Acetaminophen/Codeine 120-12 MG/5 ML Soln 5 ML UD Cup PO ONE (10:50)
[2023-11-03 19:41] VITALS: BP 131/76; PULSE 80
== END 2023-11-03 11:45 | disposition home or self-care (01) ==
LOC: MW.ED 10:17
DX: J02.0 Streptococcal pharyngitis (principal); E66.9 Obesity, unspecified; Z75.8 Other problems related to medical facilities and other health care; Z68.32 Body mass index [BMI] 32.0-32.9, adult
CPT/HCPCS: 87651; 96372; 99283; A9270; J2930

== ENCOUNTER 2023-12-01 18:36 | Emergency (ER) | payer BC ==
[2023-12-01] MEDS: Sodium Chloride 0.9% 1,000 ML IV ONE ×2 (18:55→21:25)
[2023-12-01 19:12] LABS: BASOPHILS ABSOLUTE AUTO 0.05 K/uL (0.00-0.20); BASOPHILS PERCENT AUTO 0.5 % (0.0-1.0); EOSINOPHILS ABSOLUTE AUTO 0.19 K/uL (0.00-0.45); EOSINOPHILS PERCENT AUTO 1.8 % (0.0-6.0); HEMATOCRIT 30.2 % (37.0-47.0); HEMOGLOBIN 9.9 g/dL (12.0-16.0); IMMATURE GRAN ABSOLUTE AUTO 0.07 K/uL (0.00-0.05); IMMATURE GRAN PERCENT AUTO 0.7 % (0.0-0.4); LYMPHOCYTES ABSOLUTE AUTO 4.09 K/uL (1.00-4.80); LYMPHOCYTES PERCENT AUTO 39.6 % (24.0-44.0); MEAN CORPUSCULAR HEMOGLOBIN 27.5 pg (28.0-32.0); MEAN CORPUSCULAR HGB CONC 32.8 g/dL (32.0-36.0); MEAN CORPUSCULAR VOLUME 83.9 fL (83.0-99.0); MEAN PLATELET VOLUME 9.9 fL (9.4-12.3); MONOCYTES ABSOLUTE AUTO 0.66 K/uL (0.00-0.80); MONOCYTES PERCENT AUTO 6.4 % (0.0-8.0); NEUTROPHILS ABSOLUTE AUTO 5.28 K/uL (1.80-7.70); PLATELET COUNT,PLT 238 K/uL (150-400); WHITE BLOOD CELL COUNT,WBC 10.34 K/uL (3.9-11.3)
[2023-12-01 19:39] LABS: A/G RATIO 0.9 (0.9-1.6); ALANINE AMINOTRANSFERASE,ALT 36 IU/L (14-63); ALBUMIN 3.3 g/dL (3.4-5.0); ALKALINE PHOSPHATASE 62 U/L (46-116); ASPARTATE AMNIOTRANSFERASE,AST 20 IU/L (15-37); BILIRUBIN TOTAL 0.4 mg/dL (0.2-1.0); BLOOD UREA NITROGEN,BUN 14 mg/dL (7.0-18.0); CALCIUM 8.4 mg/dL (8.5-10.1); CARBON DIOXIDE,CO2 25.5 mmol/L (21.0-32.0); CHLORIDE,CL 102 mmol/L (98-107); CREATININE 0.9 mg/dL (0.6-1.0); GLUCOSE RANDOM 110 mg/dL (74-106); POTASSIUM,K 3.3 mmol/L (3.5-5.1); PROTEIN TOTAL,TP 6.8 g/dL (6.4-8.2); SODIUM,NA 137 mmol/L (136-145)
[2023-12-01 19:42] LABS: ESTIMATED GFR 82 mL/min (>60)
[2023-12-01] MEDS: Tranexamic Acid 1,000 MG in Sodium Chloride 0.9% 100 ML IV ONE (21:25)
[2023-12-01] MEDS: Ondansetron 4 MG/2 ML SDV IVPUSH ONE (22:11)
[2023-12-01 23:19] VITALS: BP 112/69; PULSE 75
== END 2023-12-01 23:30 | disposition home or self-care (01) ==
LOC: MW.ED 18:36
DX: N93.9 Abnormal uterine and vaginal bleeding, unspecified (principal); E66.9 Obesity, unspecified; Z79.899 Other long term (current) drug therapy; Z75.8 Other problems related to medical facilities and other health care
CPT/HCPCS: 36415; 76857; 80053; 84703; 85025; 96361; 96374; 96375; 99284; J2405; J3490; J7030

== ENCOUNTER 2024-05-25 07:34 | Day surgery (SDC) | payer BC ==
[~2024-05-25 07:34] MED LIST changes: +Albuterol 0.083% 2.5 MG/3 ML Neb Soln NEB PRN; -Dexamethasone 4 MG/ML 5 ML MDV ONE; +HYDROmorphone 1 MG/ML Syringe IVPUSH PRN; -Lactated Ringers 1,000 ML IV SCH; +Metoclopramide 10 MG/2 ML SDV IVPUSH PRN; -Midazolam 1 MG/ML 2 ML SDV ONE; +Morphine 2 MG/ML SYRINGE IVPUSH PRN; +Naloxone 0.4 MG/ML SDV IVPUSH PRN; +Ondansetron 4 MG/2 ML SDV IVPUSH PRN; -Ondansetron 4 MG/2 ML SDV ONE; +Phenylephrine HCl In 0.9% NaCl 1 MG/10 ML Syringe IVPUSH PRN; -ceFAZolin/Dextrose,Iso-Osmotic 2 GM/50 ML Duplex Bag IV ONE; +droPERidol 5 MG/2 ML SDV IVPUSH PRN; +fentaNYL 100 MCG/2 ML SDV ONE; -fentaNYL 250 MCG/5 ML SDV ONE; +propofoL 50 ML ONE
[2024-05-25] MEDS ORDERED: Ondansetron 4 MG/2 ML SDV ONE ×2 (07:56→08:50)
[2024-05-25] MEDS ORDERED: Dexamethasone 4 MG/ML 5 ML MDV ONE (07:56)
[2024-05-25] MEDS ORDERED: Ketorolac 30 MG/ML SDV ONE (07:57)
[2024-05-25] MEDS: Scopalamine 1mg/3day Transdermal Patch TOP ONE (08:15)
[2024-05-25] MEDS ORDERED: Morphine 10 MG/ML SDV ONE (08:28)
[2024-05-25] MEDS: Lactated Ringers 1,000 ML IV SCH (08:30)
[2024-05-25] MEDS ORDERED: Lidocaine 2% 5 ML SDV ONE (08:32)
[2024-05-25] MEDS ORDERED: Metoclopramide 10 MG/2 ML SDV ONE (08:42)
[2024-05-25] MEDS ORDERED: Propofol 200 MG/20 ML SDV ONE (08:51)
[2024-05-25] MEDS: fentaNYL 50 MCG/ML SDV IVPUSH PRN (10:03)
[2024-05-25 13:42] VITALS: BP 120/80; PULSE 62
== END 2024-05-25 10:35 | disposition home or self-care (01) ==
LOC: MW.SDS 07:34
PROVIDERS: ATTEND Obstetrics & Gynecology
DX: N84.0 Polyp of corpus uteri (principal); D50.9 Iron deficiency anemia, unspecified; E66.9 Obesity, unspecified; Z68.33 Body mass index [BMI] 33.0-33.9, adult
CPT/HCPCS: 58563; A9270; J0131; J1100; J1885; J2270; J2405; J2704; J2765; J3010; J7120; 00952; J3490